=== PATIENT | male | born 1980 | race Caucasian/White ===

== ENCOUNTER 2018-02-16 21:30 | Emergency (ER) | payer OTHER ==
[~2018-02-16] VITALS: Ht 167.6 cm; Wt 95.5 kg
[2018-02-16] MEDS ORDERED: cyclobenzaprine 10mg tablet PO ONE (22:50)
[2018-02-16] MEDS ORDERED: HYDROcodone/acetaminophen 5mg/325mg tablet PO ONE (22:50)
[2018-02-16] MEDS ORDERED: naproxen 500mg tablet PO ONE (22:50)
[2018-02-16 23:21] VITALS: BP 115/70
== END 2018-02-16 23:23 | disposition home or self-care (01) ==
LOC: ER 21:33
DX: S00.83XA Contusion of other part of head, initial encounter (principal); W50.0XXA Accidental hit or strike by another person, initial encounter; Y93.89 Activity, other specified; Y92.89 Other specified places as the place of occurrence of the external cause; Y99.8 Other external cause status
CPT/HCPCS: 99284